=== PATIENT | male | born 1950 ===

== ENCOUNTER 2017-11-24 12:22 | Emergency (ER) | payer MEDICARE, OTHER ==
[2017-11-24 12:39] VITALS: BP 133/65
--- NOTE | 2017-11-24 13:22 | UC ---
Respiratory Complaint HPI - HPI Summary HPI Summary: 67 yo male with cough x 4-5 days malaise and fatigue mild myalias has felt feverish and had chills - History of Current Complaint Chief Complaint: UCGeneralIllness Stated Complaint: COUGH, CONGESTED Time Seen by Provider: 11/24/17 13:11 Hx Obtained From: Patient Onset/Duration: Gradual Onset, Lasting Days Timing: Constant Severity Initially: Mild Severity Currently: Moderate Pain Intensity: 4 Pain Scale Used: 0-10 Numeric Character: Cough: Productive Aggravating Factors: Nothing Alleviating Factors: Nothing Associated Signs And Symptoms: Positive: Fever, Chills - Allergies/Home Medications Allergies/Adverse Reactions: Allergies Allergy/AdvReac Type Severity Reaction Status Date / Time No Known Allergies Allergy Verified 11/24/17 12:39 Home Medications: Home Medications Magnesium [Magnesium 400 mg] 1 tab PO DAILY 11/24/17 [History Confirmed 11/24/17 ] PMH/Surg Hx/FS Hx/Imm Hx Previously Healthy: Yes Respiratory History: Pneumonia - x1 - Surgical History Surgical History: None - Family History Known Family History: Positive: Hypertension - Social History Alcohol Use: Rare Substance Use Type: None Smoking Status (MU): Former Smoker - Immunization History Most Recent Influenza Vaccination: 2017 Review of Systems Constitutional: Fever, Chills, Fatigue Skin: Negative Eyes: Negative ENT: Negative Respiratory: Cough Cardiovascular: Negative Gastrointestinal: Negative Genitourinary: Negative Motor: Negative Neurovascular: Negative Musculoskeletal: Negative Neurological: Negative Psychological: Negative Is Patient Immunocompromised?: No All Other Systems Reviewed And Are Negative: Yes Physical Exam Triage Information Reviewed: Yes Appearance: Well-Appearing, No Pain Distress, Well-Nourished Vital Signs: Initial Vital Signs Temp 99.3 F 11/24/17 12:32 Pulse 83 11/24/17 12:32 Resp 22 11/24/17 12:32 BP 133/65 11/24/17 12:32 Pulse Ox 96 11/24/17 12:32 Eyes: Positive: Conjunctiva Clear ENT: Positive: TMs normal, Sinus tenderness - SLIGHT MAX, Uvula midline. Negative: Nasal congestion, Tonsillar swelling, Tonsillar exudate Neck: Positive: Supple, Nontender, No Lymphadenopathy Respiratory: Positive: No respiratory distress, No accessory muscle use, Rhonchi Cardiovascular: Positive: RRR, No Murmur Musculoskeletal: Positive: ROM Intact, No Edema Neurological: Positive: Alert Psychological Exam: Normal Skin Exam: Normal UC Diagnostic Evaluation - Laboratory O2 Sat by Pulse Oximetry: 96 - NORMAL/NOT HYPXIC - Radiology Xray Interpretation: No Acute Changes Radiology Interpretation Completed By: Radiologist Respiratory Course/Dx - Differential Dx/Diagnosis Provider Diagnoses: ACUTE BRONCHITIS Discharge - Discharge Plan Condition: Stable Disposition: HOME Prescriptions: Azithromycin TAB* [Zithromax TAB*] 250 mg PO DAILY #6 tab Patient Education Materials: Acute Bronchitis (ED) [place]errals: [facility] [place]Outside] (CALL IF YOU NEED TO FIND PRIMARY CARE PHYSICIAN) Additional Instructions: rest fluids tylenol or advil if needed mucinex or robitussin RECHECK FOR WORSENING SMPTOMS OR IF NOT BETTER IN 4 DAYS
--- NOTE | 2017-11-24 13:59 | RAD ---
INDICATION: Cough and chills. Former tobacco use. COMPARISON: No relevant prior exams available on the [facility] [place]. TECHNIQUE: Dual energy PA and routine lateral views of the chest were obtained. REPORT: Clear lungs and pleural spaces. Negative for pneumothorax. The heart, pulmonary vasculature, and mediastinal contours are unremarkable. Unremarkable osseous structures and soft tissue contours. IMPRESSION: No evidence for pneumonia. No evidence for acute intrathoracic disease.
== END 2017-11-24 14:20 | disposition home or self-care (01) ==
LOC: UCEAST 12:22
DX: J20.9 Acute bronchitis, unspecified (principal); Z87.891 Personal history of nicotine dependence
CPT/HCPCS: 71046; 99202; G0463

== ENCOUNTER 2020-02-14 18:24 | Emergency (ER) | payer MEDICARE ==
[2020-02-14 19:00] VITALS: BP 128/76
--- NOTE | 2020-02-14 19:02 | UC ---
Throat Pain/Nasal Rufino HPI - HPI Summary HPI Summary: 69-year-old male comes in with a chief complaint of sinusitis symptoms for about 3 weeks. Been having frontal sinus pressure and some rhinorrhea. Patient reports intermittent fatigue. No fevers. No cough no shortness of breath no known exposure to Covid. Patient reports he gets his temperature checked every day at work and has not had a fever. - History of Current Complaint Chief Complaint: UCGeneralIllness Stated Complaint: SINUS COMPLAINT Time Seen by Provider: 02/14/20 18:33 Pain Intensity: 0 - Allergies/Home Medications Allergies/Adverse Reactions: Allergies Allergy/AdvReac Type Severity Reaction Status Date / Time No Known Allergies Allergy Verified 02/14/20 18:35 Home Medications: Home Medications Amoxicillin PO (*) [Amoxicillin 875 MG (*)] 875 mg PO BID #20 tab 02/14/20 [Rx] Fluticasone NASAL SPRAY 50MCG* [Flonase NASAL SPRAY 50MCG*] 2 spray BOTH NARES DAILY #1 btl 02/14/20 [Rx] Folic Acid/Multivit-Min/Lutein [Adult Multivitamin Gummies] 1 each PO DAILY 01/03 [History Confirmed 02/14/20] Guaifen/Phenyleph/Acetaminophn [Tylenol Sinus Severe Caplet] 1 each PO Q6H 02/13 [History Confirmed 02/14/20] PMH/Surg Hx/FS Hx/Imm Hx Previously Healthy: Yes - Surgical History Surgical History: None - Family History Known Family History: Positive: Hypertension - Social History Alcohol Use: Rare Substance Use Type: None Smoking Status (MU): Former Smoker - Immunization History Most Recent Influenza Vaccination: 2017 Review of Systems All Other Systems Reviewed And Are Negative: Yes Constitutional: Positive: Fatigue Skin: Positive: Negative Eyes: Positive: Negative ENT: Positive: Nasal Discharge, Sinus Congestion, Sinus Pain/Tenderness Respiratory: Positive: Negative Cardiovascular: Positive: Negative Gastrointestinal: Positive: Negative Motor: Positive: Negative Neurovascular: Positive: Negative Musculoskeletal: Positive: Negative Neurological/Mental Status: Positive: Headache - Frontal Psychological: Positive: Negative Is Patient Immunocompromised?: No Physical Exam Triage Information Reviewed: Yes Appearance: Well-Appearing, No Pain Distress, Well-Nourished Vital Signs Reviewed: Yes Eye Exam: Normal Eyes: Positive: Conjunctiva Clear ENT: Positive: Pharynx normal, Nasal congestion, TMs normal Neck: Positive: Supple Respiratory: Positive: Lungs clear, Normal breath sounds, No respiratory distress Cardiovascular: Positive: RRR Musculoskeletal: Positive: Strength Intact, ROM Intact Neurological: Positive: Alert Psychological: Positive: Age Appropriate Behavior Skin Exam: Normal Throat Pain/Nasal Course/Dx - Course Course Of Treatment: Patient said 3 weeks of sinus congestion and therefore we will treat with antibiotics for sinusitis also will treat with Flonase. No fevers measured no cough no shortness of breath no evidence of Covid at this time. Patient's to get reevaluated if not improving or worse. - Differential Dx/Diagnosis Provider Diagnosis: Sinusitis Discharge ED - Sign-Out/Discharge Documenting (check all that apply): Patient Departure All imaging exams completed and their final reports reviewed: No Studies - Discharge Plan Condition: Stable Disposition: HOME Prescriptions: Amoxicillin PO (*) [Amoxicillin 875 MG (*)] 875 mg PO BID #20 tab Fluticasone NASAL SPRAY 50MCG* [Flonase NASAL SPRAY 50MCG*] 2 spray BOTH NARES DAILY #1 btl Patient Education Materials: Sinusitis (ED) Referrals: [facility] [place] [facility] [Outside] Additional Instructions: FOLLOW UP WITH YOUR DOCTOR IF NOT COMPLETELY IMPROVED. GET REEVALUATED IF NOT IMPROVED OR WORSE OR ANY QUESTIONS OR CONCERNS. - Billing Disposition and Condition Condition: STABLE Disposition: Home
== END 2020-02-14 19:20 | disposition home or self-care (01) ==
LOC: UCEAST 18:24
DX: J32.9 Chronic sinusitis, unspecified (principal); R53.83 Other fatigue; Z87.891 Personal history of nicotine dependence
CPT/HCPCS: 99212; G0463